=== PATIENT | male | born 2005 | race Caucasian/White ===

== ENCOUNTER 2025-06-15 19:43 | Emergency (ER) | payer BC, SELFPAY ==
[2025-06-15 19:49] VITALS: BP 141/84
[2025-06-15 20:15] LABS: Hematocrit 43.0 % (39.0-52.0); Hemoglobin 15.2 g/dL (13.0-18.0); Mean Corp Hgb Conc. 35.3 g/dL (33.0-37.0); Mean Corpuscular Volume 84.8 fL (80.0-94.0); Nucleated Red Blood Cells % 0 % (-); Platelet Count 207 10^3/uL (130-400); Red Cell Dist. Width 12.4 % (11.5-14.5)
[2025-06-15 20:18] LABS: Urine Character Clear (Clear)
[2025-06-15 20:38] LABS: ALT (SGPT) 22 U/L (0-50); AST (SGOT) 30 U/L (17-59); Albumin 5.2 g/dl (3.5-5.0); Alkaline Phosphatase 71 U/L (38-126); Blood Urea Nitrogen 14 mg/dl (9-20); Calcium 10.1 mg/dl (8.4-10.2); Carbon Dioxide 29 mmol/L (22-30); Chloride 101 mmol/L (98-107); Glucose 98 mg/dl (70-99); Potassium 4.1 mmol/L (3.5-5.1); Sodium 139 mmol/L (135-145); Total Protein 8.2 g/dl (6.3-8.2); eGFR > 60.00
[2025-06-15 20:39] LABS: Urine Red Blood Cell 0-2 /HPF (0-2); Urine Squamous Cell 0-2 /LPF (Few); Urine White Cell 0-2 /HPF (0-5)
[2025-06-15 20:51] LABS: Troponin I < 0.012 ng/ml
[2025-06-15 23:14] VITALS: BP 144/82
[2025-06-15 23:15] VITALS: BMI 21.8
[2025-06-16] VITALS: BP 119/75
--- NOTE | 2025-06-16 00:50 | ED.CVA ---
History of Present Illness
<Aidan Dupont DO - Last Filed: 06/16/25 01:17>
General
Chief Complaint: CVA/TIA Symptoms
Time Seen by Provider: 06/15/25 23:02
<Manoj Louis Jr., PA-C - Last Filed: 06/16/25 02:50>
General
Source: patient, spouse and family
Exam Limitations: none
Nursing documentation reviewed up to this point in time: agreed with
Onset of Stroke Symptoms
Onset of symptoms known: Yes
Date of onset of symptoms: 06/16/25
Time of onset of symptoms: 14:30
History of Present Illness
History of Present Illness:
20-year-old male without significant past medical history presenting to the emergency department today with concerns of difficulty speaking and finding his words at 230 today roughly 8 hours prior to arrival to the emergency department. Also felt
like he had some balance issues at that time as well. Symptoms have significantly improved. No ongoing issues with balance but does occasionally have word finding. Had a similar episode 6 months ago and followed up with endocrinology as well as
cardiology without any specific findings. Denies any chest pain shortness of breath.
Review of Systems
<Manoj Louis Jr., PA-C - Last Filed: 06/16/25 02:50>
Review of Systems
Allergies reviewed?: Yes
All Other Systems: ROS reviewed and negative except as documented in HPI and ROS
Phy Exam
<Manoj Louis Jr., PA-C - Last Filed: 06/16/25 02:50>
Physical Exam
Physical Exam:
GENERAL: Alert , in no apparent distress
EYE: pupils equal and reactive
NECK: Supple, no significant adenopathy.
ENT: o/p clr, mmm.
CARDIAC: Regular rate and rhythm .
LUNGS: Clear breath sounds bilaterally, no acute respiratory distress, no wheezes/rales/rhonchi
ABDOMEN: Soft, without focal tenderness, no r/g, no cvat
NEUROLOGICAL: Alert and oriented, no focal neuro deficits 5 out of 5 upper and lower extremity strength normal sensation when palpating bilaterally normal finger-nose and [id number] walking with steady gait
SKIN: Warm and dry, skin intact.
MUSCULOSKELETAL: No edema, well perfused.
PSYCH: Normal and appropriate interaction.
Course
<Aidan Dupont, DO - Last Filed: 06/16/25 01:17>
Orders/Labs/Results
Orders:
Orders
06/15/25 19:56
Electrocardiogram (*1) Urgent
Reason for Study: Other
Other Reason for Exam: Possible Stroke
Head wo Contrast CT [CT Head W/o Iv Contrast] Urgent
Comment:
Reason For Exam: head fullness since 1430, struggled to talk
EKG- Treatment ONCE
06/15/25 20:02
Urinalysis Reflex To Culture Urgent
Date Specimen was Collected: 06/15/25
Time Specimen was Collected: 19:56
Urine Microscopic Reflex Cult Urgent
06/15/25 20:06
Complete Blood Count/With Diff Urgent
Comprehensive Metabolic Panel Urgent
Folate Urgent
Comment: ADD ON
Troponin I Urgent
Vitamin B12 Urgent
Comment: ADD ON
06/16/25 00:11
Add On- LAB Urgent
Tests Added?: b12, folate level
Abnormal Lab Results
06/15/25 06/15/25
20:02 20:06
Albumin 5.2 H g/dl
(3.5-5.0)
Urine Bacteria (Reflex) Few A
(Negative)
Urine Albumin (Reflex) 1+ A
(Neg - Trace)
06/15/25 20:06
06/15/25 20:06
Vital Signs
Initial and Last Documented VS:
Initial Vital Signs
Temp Pulse Resp BP Pulse Ox
98.3 F 79 16 141/84 100
06/15/25 19:49 06/15/25 19:49 06/15/25 19:49 06/15/25 19:49 06/15/25 19:49
Last Documented Vital Signs
Temp Pulse Resp BP Pulse Ox
98.3 F 79 16 126/77 97
06/15/25 19:49 06/15/25 19:49 06/15/25 19:49 06/16/25 01:00 06/16/25 01:00
<Manoj Louis Jr., PA-C - Last Filed: 06/16/25 02:50>
Orders/Labs/Results
Orders:
Orders
06/15/25 19:56
Electrocardiogram (*1) Urgent
Reason for Study: Other
Other Reason for Exam: Possible Stroke
Head wo Contrast CT [CT Head W/o Iv Contrast] Urgent
Comment:
Reason For Exam: head fullness since 1430, struggled to talk
EKG- Treatment ONCE
06/15/25 20:02
Urinalysis Reflex To Culture Urgent
Date Specimen was Collected: 06/15/25
Time Specimen was Collected: 19:56
Urine Microscopic Reflex Cult Urgent
06/15/25 20:06
Complete Blood Count/With Diff Urgent
Comprehensive Metabolic Panel Urgent
Folate Urgent
Comment: ADD ON
Troponin I Urgent
Vitamin B12 Urgent
Comment: ADD ON
06/16/25 00:11
Add On- LAB Urgent
Tests Added?: b12, folate level
Abnormal Lab Results
06/15/25 06/15/25
20:02 20:06
Albumin 5.2 H g/dl
(3.5-5.0)
Urine Bacteria (Reflex) Few A
(Negative)
Urine Albumin (Reflex) 1+ A
(Neg - Trace)
06/15/25 20:06
06/15/25 20:06
Vital Signs
Initial and Last Documented VS:
Initial Vital Signs
Temp Pulse Resp BP Pulse Ox
98.3 F 79 16 141/84 100
06/15/25 19:49 06/15/25 19:49 06/15/25 19:49 06/15/25 19:49 06/15/25 19:49
Last Documented Vital Signs
Temp Pulse Resp BP Pulse Ox
98.3 F 79 16 126/77 97
06/15/25 19:49 06/15/25 19:49 06/15/25 19:49 06/16/25 01:00 06/16/25 01:00
<Manoj Louis Jr., PA-C - Last Filed: 06/16/25 02:50>
MDM/Problems Addressed
MDM/Problems Addressed:
20-year-old male presenting to the emergency department today with concerns of difficulty with seeking and expressive aphasia prior to arrival lasted for a few hours has since resolved. Here denies any specific ongoing symptoms. Has similar
episodes multiple times in the past including 6 months ago and he had an outpatient workup with cardiology as well as endocrinology that did not yield any findings. Here his exam is normal vital signs are normal labs are unremarkable. CT scan is
negative. Case discussed with neurology recommending a B12 and folate level otherwise he can follow-up. Case also discussed with attending physician who saw the patient recommending outpatient MRI and EEG through the primary care doctor as well as
neurology follow-up but otherwise stable for discharge. Return precautions were discussed.
<Aidan Dupont DO - Last Filed: 06/16/25 01:17>
*Pulse Oximetry
SaO2: 100
Oxygen Mode of Delivery: Room air
<Manoj Louis Jr., PA-C - Last Filed: 06/16/25 02:50>
*Pulse Oximetry
Patient hypoxic: no (97)
*Critical Care Note
Total Time (30-74mins, 75-104mins- exclusive of procedures): Not Applicable
ED Attending Note
<Aidan Dupont DO - Last Filed: 06/16/25 01:17>
ED Attending Note
Patient seen and examined by attending physician: Yes
I performed the substantive portion of visit, reviewed & personally made and approve the management plan that is documented in note by myself or ALEXIS.: Yes
ED Attending Note:
20-year-old male presents with a feeling like he had difficulty with speech starting earlier today. Admits that he has had this issue off and on over the last 2 years. Seen by his doctor and referred to endocrinology and cardiology close there was
a thought that he had orthostatic hypotension. Patient states he feels much better now and symptoms have resolved. States that he was straining exercising was not sure if it was related and also admits that he had not eaten. Exam: Awake alert.
Speech normal. Cranial nerves grossly intact. Assessment and plan: CT negative. Consider seizure. consider dissection although unlikely. No neck pain or headache. I did recommend close follow-up for outpatient MRI and EEG. Discussed with
family and at this time we will forego CTA imaging but patient will monitor for any progressive symptoms. He has had similar symptoms in the past which makes dissection as an etiology unlikely.
-
Portions of this chart may have been created with voice recognition software.� Occasional wrong word or��sound alike� substitutions may have occurred due to the inherent limitations of voice recognition software.
Discharge Plan
Departure
Patient Disposition: Home (Routine Discharge)
Date of Disposition: 06/16/25
Time of Disposition: 01:32
Patient with high blood pressure during this ER visit?: No
Condition: Good
Covid-19: Not Applicable
Discharge Problem:
Aphasia
Instructions: Aphasia (DC)
Prescriptions:
No Action
No Current Medications
0
Referrals:
Teddy Torres MD [Active, Neurology] - Follow up in 5-7 days
Gissell Perez MD [Family Provider, Internal Medicine]
Activity Restrictions/Additional Instructions:
You came to the emergency department today with concerns of difficulty with word finding. Here he had a reassuring examination with normal CT and labs. Please follow closely with neurology as well as an outpatient MRI and the EEG through your
primary care doctor. Return for any worsening or progressive symptoms.
Interventions
Interventions:
*Risk Screen - Suicide Last Done: 06/15/25 19:53
*General Assessment Last Done: 06/15/25 23:19
*Neglect/Abuse Screening Last Done: 06/15/25 19:49
*ED- Fall Risk Assessment Last Done: 06/15/25 19:49
*ED COVID-19 Vaccine History Last Done: 06/16/25 01:38
*Nursing Disposition Last Done: 06/16/25 01:38
ED- Pulmonary Assessment Last Done: 06/15/25 23:24
ED- Neurological Assessment Last Done: 06/15/25 23:19
ED- Cardiac Assessment Last Done: 06/15/25 23:19
ED Swallowing Screen Last Done: 06/15/25 23:19
Discharge Date and Time
Discharge Date/Time: 06/16/25 01:39
Print Language: FRISIAN
[2025-06-16 01:00] VITALS: BP 126/77
[2025-06-16 02:16] LABS: Folate 8.8 ng/ml (2.76-20); Vitamin B12 664 pg/ml (239-931)
== END 2025-06-16 01:39 | disposition home or self-care (01) ==
LOC: EMR 19:43
PROVIDERS: Emergency Medicine; EMERGENCY PHYSICIAN Emergency Medicine; FAMILY PHYSICIAN Internal Medicine
DX: R47.01 Aphasia (principal)
CPT/HCPCS: 99284; 70450; 80053; 81003; 81015; 82607; 82746; 84484; 85025; 93005